=== PATIENT | female | born 1950 | race Caucasian/White ===

== ENCOUNTER 2021-04-13 23:57 | Outpatient (CLI) | payer SELFPAY | END 2021-04-13 23:58 | disposition EMS.NT | LOC: EMS 23:57 | DX: S69.92XA Unspecified injury of left wrist, hand and finger(s), initial encounter (principal); W22.03XA Walked into furniture, initial encounter; Y93.01 Activity, walking, marching and hiking; Y92.009 Unspecified place in unspecified non-institutional (private) residence as the place of occurrence of the external cause ==

== ENCOUNTER 2023-11-11 15:30 | Outpatient (CLI) | payer MEDICARE ==
[2023-11-11 17:37] LABS: BILIRUBIN,URINE NEGATIVE (NEGATIVE); GLUCOSE, URINE (UA) NEGATIVE (NEGATIVE); KETONES,URINE (UA) NEGATIVE (NEGATIVE); LEUKOCYTE ESTERASE, URINE NEGATIVE (NEGATIVE); NITRITE,URINE POSITIVE (NEGATIVE); OCCULT BLOOD,URINE NEGATIVE (NEGATIVE); PROTEIN,URINE NEGATIVE (NEGATIVE); UROBILINOGEN,URINE 0.2 (NORMAL) E.U./dL (NORMAL)
[2023-11-11 17:54] LABS: BACTERIA,URINE Rare /HPF (None Seen); CLARITY,URINE CLEAR (CLEAR); RBC,URINE None Seen /HPF (0-5); SQUAMOUS EPITHELIAL CELL,UR MANY Squamous (<= Few); WBC,URINE 0-3 /HPF (0-5)
== END 2023-11-11 15:45 | disposition home or self-care (01) ==
LOC: LAB.N 15:30
PROVIDERS: ATTEND Family Medicine
DX: N39.0 Urinary tract infection, site not specified (principal)
CPT/HCPCS: 81001; 87077; 87086; 87181

== ENCOUNTER 2024-06-13 16:51 | Emergency (ER) | payer MEDICARE ==
[2024-06-13 17:08] VITALS: O2SAT 99
[2024-06-13 18:20] LABS: BASOPHILS % (AUTO) 0.6 %; EOSINOPHILS # (AUTO) 0.1 10^3/uL (0.0-0.7); EOSINOPHILS % (AUTO) 2.3 %; HGB - HEMOGLOBIN 13.4 g/dL (12.0-16.0); LYMPHOCYTES # (AUTO) 2.7 10^3/uL (1.5-3.5); LYMPHOCYTES % (AUTO) 56.3 %; MEAN CORPUSCULAR HEMOGLOBIN 30.4 pg (27.0-31.0); MEAN CORPUSCULAR HGB CONC 32.7 g/dL (32.0-36.0); MEAN PLATELET VOLUME 11.6 fL (7.9-10.8); MONOCYTES # (AUTO) 0.4 10^3/uL (0.0-1.0); MONOCYTES % (AUTO) 7.6 %; NEUTROPHILS # (AUTO) 1.6 10^3/uL (1.5-6.6); PLT - PLATELET COUNT 176 10^3/uL (130-450); RED BLOOD COUNT 4.41 10^6/uL (4.20-5.40); RED CELL DISTRIBUTION WIDTH 13.1 % (12.0-15.0); WHITE BLOOD COUNT 4.9 x10^3/uL (4.8-10.8)
[2024-06-13 18:24] LABS: BILIRUBIN,URINE NEGATIVE (NEGATIVE); GLUCOSE, URINE (UA) NEGATIVE (NEGATIVE); KETONES,URINE (UA) NEGATIVE (NEGATIVE); LEUKOCYTE ESTERASE, URINE TRACE (NEGATIVE); NITRITE,URINE NEGATIVE (NEGATIVE); OCCULT BLOOD,URINE NEGATIVE (NEGATIVE); PROTEIN,URINE NEGATIVE (NEGATIVE); UROBILINOGEN,URINE 0.2 (NORMAL) E.U./dL (NORMAL)
[2024-06-13 18:26] LABS: CLARITY,URINE CLEAR (CLEAR)
--- NOTE | 2024-06-13 18:35 | ED Physician Documentation ---
History of Present Illness - Stated complaint Stated Complaint: LT FLANK PX - Chief complaint Chief Complaint: Abd Pain - Additonal information Additional information: 74-year-old female with no pertinent past medical history presents emerged department for left flank pain that has been ongoing now for the last 4 to 5 days. She has been afebrile no nausea or vomiting no urinary urgency or frequency no dysuria she says that she originally went to the walk-in clinic for further evaluation and they sent her here to the emergency department there were about a possible kidney stone. Patient has no history of kidney stones she has been having hot flashes and chills at home unsure if she is been having any fevers or chills at home. PD PAST MEDICAL HISTORY - Past Medical History Past Medical History: Yes - Past Surgical History Past Surgical History: No - Present Medications Home Medications: Ambulatory Orders Medication Instructions Recorded Confirmed Amox/Clav 875/125 [Augmentin 1 tablet PO Q12H 7 Days #14 tablet 06/13/24 875/125 Tab] - Allergies Allergies/Adverse Reactions: Allergies Allergy/AdvReac Type Severity Reaction Status Date / Time Sulfa (Sulfonamide AdvReac Unknown Verified 06/13/24 17:01 Antibiotics) - Social History Does the pt smoke?: No Smoking Status: Never smoker Does the pt drink ETOH?: No Does the pt have substance abuse?: No - Immunizations Immunizations are current?: Yes PD ED PE NORMAL - Vitals Vital signs reviewed: Yes - General General: Alert and oriented X 3, No acute distress, Well developed/nourished - Abdomen Abdomen: Normal bowel sounds, Soft, Non tender, Non distended, No organomegaly - Back Back: No CVA TTP, No spinal TTP - Derm Derm: Normal color, Warm and dry, No rash - Extremities Extremities: No deformity, No tenderness to palpate, Normal ROM s pain Results - Vitals Vitals: Vital Signs - 24 hr 06/13/24 06/13/24 17:02 20:10 Temperature 36.8 C 36.3 C L Heart Rate 90 74 Respiratory 16 16 Rate Blood Pressure 150/90 H 145/67 H O2 Saturation 99 99 Oxygen O2 Source Room air - Labs Labs: Laboratory Tests 06/13/24 06/13/24 06/13/24 17:55 17:55 17:55 WBC 4.9 RBC 4.41 Hgb 13.4 Hct 41.0 MCV 93.0 MCH 30.4 MCHC 32.7 RDW 13.1 Plt Count 176 MPV 11.6 H Neut # (Auto) 1.6 Lymph # (Auto) 2.7 [place] # (Auto) 0.4 Eos # (Auto) 0.1 Baso # (Auto) 0.0 Absolute Nucleated RBC 0.00 Nucleated RBC % 0.0 Sodium 136 Potassium 4.4 Chloride 100 L Carbon Dioxide 30 Anion Gap 6.0 BUN 15 Creatinine 0.7 Estimated GFR (MDRD) 82 L Glucose 101 Calcium 9.8 Total Bilirubin 0.4 AST 12 ALT 13 Alkaline Phosphatase 70 Total Protein 6.7 Albumin 4.3 Globulin 2.4 Albumin/Globulin Ratio 1.8 Lipase 21 Urine Color YELLOW Urine Clarity CLEAR Urine pH 7.0 Ur Specific [place] 1.010 Urine Protein NEGATIVE Urine Glucose (UA) NEGATIVE Urine Ketones NEGATIVE Urine Occult Blood NEGATIVE Urine Nitrite NEGATIVE Urine Bilirubin NEGATIVE Urine Urobilinogen 0.2 (NORMAL) Ur Leukocyte Esterase TRACE H Urine RBC None Seen Urine WBC 0-3 Ur Squamous Epith Cells MANY Squamous H Urine Bacteria Rare Ur Microscopic Review INDICATED Urine Culture Comments NOT INDICATED - Rads (name of study) CT KUB Relevant Findings:: Final report received, EMP independent interpretation of test, Other (Mild hepatomegaly, no urinary calcification or obstructive uropathy mild left lower quadrant proximal sigmoid diverticulosis with trace adjacent fascial thickening may indicate resolving or very mild diverticulitis) PD Medical Decision Making - ED course ED course: 74-year-old female presents emergency department for left flank pain. Patient says that she has had a lot of musculoskeletal issues in the past and she says that she is quite confident that this is not musculoskeletal related it feels much deeper than that. She says most of the pain is upon awakening in the morning she had labs completed here in the emergency department which were found to be overall fairly unremarkable no leukocytosis no electrolyte abnormalities normal kidney function urinalysis is also negative for any leukocytes or nitrites not indicating any further workup for possible urinary tract infection. CT KUB was complete for further evaluation of possible renal calculi no urinary calcification or obstructive uropathy were visualized she has mild left lower quadrant proximal sigmoid diverticulosis with trace adjacent fascial thickening may indicate resolving or very mild diverticulitis. 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 Prescription of Augmentin was sent to patient's preferred pharmacy she was also encouraged to fast for the next 24 hours and to avoid nuts and to research diverticulitis diet to see if this can help return precautions given patient is safe for discharge at this time all questions answered. Departure - Departure Disposition: 01 Home, Self Care Clinical Impression: Diverticulitis, Left flank pain Instructions: Diverticulosis Diverticulitis, Diverticulitis Dc, ED Diverticulitis Prescriptions: Amox/Clav 875/125 [Augmentin 875/125 Tab] 1 tablet PO Q12H 7 Days #14 tablet Comments: You for trusting us with your care there is a possibility that you have a's very small diverticulitis going on. I have copied and pasted the CT results below for your reading. I have sent a prescription to your preferred pharmacy on file if your symptoms get any worse if you start to develop any fevers or chills nausea or vomiting please come back to the emergency department for further evaluation please help with your primary care provider and let her know about today's ER visit I would strongly encourage you to do some fasting for the next 24 hours sticking to a clear liquid diet to see if this helps with your symptoms. Final Report PT NAME: ADELINE CHOWDHURY MR#: [id number] REG ER/ED AGE: 74 CI DT/TM: 06/13/24 PCP: Alysha Rm PA-C : [id number] ATT: SEX: F ORD: Diya Peña INSECTICIDE MIXER EXAM: CT/KUB ([id number]) PROCEDURE: KUB INDICATIONS: L flank pain TECHNIQUE: A CT scan of the abdomen and pelvis was performed without the use of intravenous contrast. Images were recorded and evaluated at appropriate window settings. Reformats: coronal and sagittal. For radiation dose reduction, the following was used: automated exposure control, adjustment of mA and/or kV according to patient size. COMPARISON: None. FINDINGS: Image quality: Diagnostic. Lower chest: Unremarkable. Liver: Mild hepatomegaly. No occasional subcentimeter hypodensities, likely cysts. Gallbladder: Partially decompressed gallbladder. No calcifications. Biliary tree: No intrahepatic or extrahepatic dilation, accounting for age. Spleen: No splenomegaly. Pancreas: No pancreatic ductal dilation. Adrenals: No adrenal nodule. Kidneys and ureters: No stones, hydronephrosis, or perinephric inflammation. Normal ureters without dilatation or calcifications. Stomach, bowel and peritoneum: Stomach and small bowel loops are within normal limits. Normal appendix. Left lower quadrant diverticulosis and trace adjacent fascial thickening. No extraluminal gas or significant pericolonic inflammation. No pathologic free fluid. Lymph nodes: There are mildly prominent upper retroperitoneal lymph nodes, normal shape. No bulky retroperitoneal or mesenteric adenopathy. Vessels: Normal caliber abdominal aorta, IVC, and portal vein. Reproductive organs: Absent uterus. Ovaries are not well seen. Bladder: Bladder wall thickness is normal, accounting for underdistention. No calcified bladder stones. Pelvic lymph nodes: No adenopathy by size criteria. Bones: Degenerative T12 superior endplate depression centrally. No other suspicious bone lesions. Other: No significant ventral or inguinal hernia. IMPRESSION: No urinary calcifications or obstructive uropathy. Mild left lower quadrant/proximal sigmoid diverticulosis with trace adjacent fascial thickening may indicate resolving, or very mild diverticulitis. No extraluminal gas or free fluid. Mild hepatomegaly. Reviewed by: Yaritza Bowser MD on 06/13/2024 7:45 PM PDT Approved by: Yaritza Bowser MD on 06/13/2024 7:45 PM PDT Station ID: [id number] Report Electronically Signed by Yaritza Bowser MD 06/13/[id number] cc: Alysha Rm PA-C; Diya Martel DNP Forms: PCP List Discharge Date/Time: 06/13/24 20:10
[2024-06-13 18:36] LABS: ALBUMIN 4.3 g/dL (3.2-5.5); ALBUMIN/GLOBULIN RATIO 1.8 (1.0-2.2); BILIRUBIN,TOTAL 0.4 mg/dL (0.2-1.0); CALCIUM 9.8 mg/dL (8.5-10.3); CREATININE 0.7 mg/dL (0.6-1.3); POTASSIUM 4.4 mmol/L (3.5-4.5); TOTAL PROTEIN 6.7 g/dL (6.4-8.9)
[2024-06-13 18:37] LABS: BACTERIA,URINE Rare /HPF (None Seen); RBC,URINE None Seen /HPF (0-5); SQUAMOUS EPITHELIAL CELL,UR MANY Squamous (<= Few); WBC,URINE 0-3 /HPF (0-5)
[2024-06-13] MEDS: KETOROLAC 30 MG/ML VIAL IM STA (19:43)
--- NOTE | 2024-06-13 19:47 | CT Report ---
PROCEDURE: KUB INDICATIONS: L flank pain TECHNIQUE: A CT scan of the abdomen and pelvis was performed without the use of intravenous contrast. Images we re recorded and evaluated at appropriate window settings. Reformats: coronal and sagittal. For radiat ion dose reduction, the following was used: automated exposure control, adjustment of mA and/or kV ac cording to patient size. COMPARISON: None. FINDINGS: Image quality: Diagnostic. Lower chest: Unremarkable. Liver: Mild hepatomegaly. No occasional subcentimeter hypodensities, likely cysts. Gallbladder: Partially decompressed gallbladder. No calcifications. Biliary tree: No intrahepatic or extrahepatic dilation, accounting for age. Spleen: No splenomegaly. Pancreas: No pancreatic ductal dilation. Adrenals: No adrenal nodule. Kidneys and ureters: No stones, hydronephrosis, or perinephric inflammation. Normal ureters without d ilatation or calcifications. Stomach, bowel and peritoneum: Stomach and small bowel loops are within normal limits. Normal appendi x. Left lower quadrant diverticulosis and trace adjacent fascial thickening. No extraluminal gas or s ignificant pericolonic inflammation. No pathologic free fluid. Lymph nodes: There are mildly prominent upper retroperitoneal lymph nodes, normal shape. No bulky ret roperitoneal or mesenteric adenopathy. Vessels: Normal caliber abdominal aorta, IVC, and portal vein. Reproductive organs: Absent uterus. Ovaries are not well seen. Bladder: Bladder wall thickness is normal, accounting for underdistention. No calcified bladder stone s. Pelvic lymph nodes: No adenopathy by size criteria. Bones: Degenerative T12 superior endplate depression centrally. No other suspicious bone lesions. Other: No significant ventral or inguinal hernia. IMPRESSION: No urinary calcifications or obstructive uropathy. Mild left lower quadrant/proximal sigmoid diverticulosis with trace adjacent fascial thickening may i ndicate resolving, or very mild diverticulitis. No extraluminal gas or free fluid. Mild hepatomegaly. Reviewed by: Yaritza Bowser MD on 06/13/2024 7:45 PM PDT Approved by: Yaritza Bowser MD on 06/13/2024 7:45 PM PDT Station ID: [id number]
[2024-06-13 20:19] VITALS: BP 145/67
== END 2024-06-13 20:10 | disposition home or self-care (01) ==
LOC: ED 16:51
DX: K57.92 Diverticulitis of intestine, part unspecified, without perforation or abscess without bleeding (principal); R16.0 Hepatomegaly, not elsewhere classified
CPT/HCPCS: 36415; 80053; 81001; 81003; 83690; 85025; 87086; 96372; 99284